=== PATIENT | female | born 1965 | race African-American/Black ===

== ENCOUNTER 2017-06-21 14:29 | Outpatient (CLI) | payer OTHER ==
--- NOTE | 2017-06-21 15:33 | Mammography Report ---
Bilateral mammogram: Compared to 04/01/16 and 04/17/16. CAD study utilized. Findings: Predominance adipose tissue bilaterally. Focal 3 mm dense asymmetry in the inner mid left breast seen on CC view. 3 mm dense asymmetry outer mid right breast just above the nipple line. Seen on CC view. Focal architectural distortion in inner mid right breast. No microcalcification. Normal axilla. Impression: Focal circumscribed asymmetry in left breast and outer right breast and focal architectural distortion inner right breast. Recommend spot mag and if necessary sonographic examination. BI-RADS CATEGORY: 0 = Needs additional imaging evaluation ACR BI-RADS MAMMOGRAPHIC CODES: 0 = Needs additional imaging evaluation; 1 = Negative; 2 = Benign; 3 = Probably benign; 4 = Suspicious; 5 = Malignant; 6 = Known biopsy-proven malignancy COMMENT: 1. Dense breast tissue, i.e., adenosis, fibrocystic changes, etc., may obscure an underlying neoplasm. 2. Approximately 10% of cancers are not detected with mammography. 3. A negative mammography report should not delay biopsy if a clinically suspicious mass is present. COMMENT: Patient follow-up letters are generated in [employer].
== END 2017-06-21 14:30 | disposition home or self-care (01) ==
LOC: MAMMO 14:29
PROVIDERS: ATTEND Internal Medicine
DX: Z12.31 Encounter for screening mammogram for malignant neoplasm of breast (principal)
CPT/HCPCS: 77067

== ENCOUNTER 2017-07-02 12:05 | Outpatient (CLI) | payer OTHER ==
--- NOTE | 2017-07-02 12:56 | Mammography Report ---
BILATERAL DIGITAL DIAGNOSTIC MAMMOGRAM : 07/02/17 12:05:00 CLINICAL: Recalled for bilateral asymmetries. COMPARISON:06/21/17 screening FINDINGS: Bilateral additional mammographic views were performed and are negative. IMPRESSION: Negative Mammogram. BI-RADS CATEGORY: 1 -- Negative RECOMMENDATION: Routine mammographic screening in one year. ACR BI-RADS MAMMOGRAPHIC CODES: 0 = Needs additional imaging evaluation; 1 = Negative; 2 = Benign; 3 = Probably benign; 4 = Suspicious; 5 = Malignant; 6 = Known biopsy-proven malignancy COMMENT: 1. Dense breast tissue, i.e., adenosis, fibrocystic changes, etc., may obscure an underlying neoplasm. 2. Approximately 10% of cancers are not detected with mammography. 3. A negative mammography report should not delay biopsy if a clinically suspicious mass is present. COMMENT: Patient follow-up letters are generated via our [employer] application.
== END 2017-07-02 12:06 | disposition home or self-care (01) ==
LOC: MAMMO 12:05
PROVIDERS: ATTEND Surgery
DX: R92.8 Other abnormal and inconclusive findings on diagnostic imaging of breast (principal)
CPT/HCPCS: 77066